=== PATIENT | male | born 1980 | race Caucasian/White ===

== ENCOUNTER 2016-07-14 11:05 | Inpatient (IN) | payer SELFPAY ==
[~2016-07-14] VITALS: Ht 182.9 cm; Wt 108.9 kg
[2016-07-14] VITALS (7 sets, daily range): BP systolic 123–128; BP diastolic 75–85; PULSE 78–107; RESP 16–20; O2SAT 95–99
[2016-07-14] MEDS ORDERED: Ondansetron 2 mg/mL 2 mL Inj IVPUSH ONE (11:35)
[2016-07-14] MEDS ORDERED: 0.9% Sodium Chloride 1,000 ML IV ONE (11:35)
[2016-07-14 11:42] LABS: BASOPHILS % (AUTO) 0.2 % (0-3); EOSINOPHILS % (AUTO) 1.1 % (0-5); MONOCYTES % (AUTO) 4.7 % (4-12); Mean Corpuscular Hemoglobin 31.3 pg (27.0-35.0); Mean Corpuscular Volume 89.9 fL (81-100); NEUTROPHILS % (AUTO) 85.4 % (40-74); Platelet Count 172 bil/L (150-400)
[2016-07-14] MEDS: HYDROmorphone 0.5 mg/0.5 mL iSecure Syringe IVPUSH PRN ×2 (11:47→12:16)
[2016-07-14 12:11] LABS: Magnesium 2.1 mg/dL (1.6-2.6)
--- NOTE | 2016-07-14 12:44 | ED.REPORT ---
HPI-Abd Pain M Under 40 Date of Service Jul 14, 2016 ED Provider: Abdirashid Rao MD A healthy 35 year old male presents to the ER accompanied by his with four days of abdominal pain that is like "pressure" in character. He also reports constipation, stating that he is only able to produce a small amount of liquid stool with associated rectal pain. Symptoms have been treated with laxatives, which seemed to elicit a "white, pus-like" rectal discharge, with a small amount of blood. Associated symptoms include difficulty urinating, diaphoresis, and nausea. Patient denies history of prostate disease, and history of STI's. Nursing Notes Stated Complaint: ABDOMINAL PAIN Chief Complaint: Male Abdominal Pain Nursing Notes Reviewed: Yes Allergies: Coded Allergies: No Known Allergies (Unverified , 07/14/16) General Time Seen by MD: 11:32 Chief Complaint Abdominal pain Hx Obtained From: Patient Arrived By: Walk-in Sudden in Onset?: No Onset Occurred: 4 days ago Symptom Duration: Since onset Location: : Abdomen lower: Diffuse Quality: Painful, Pressure Severity: Current: Moderate Severity: Maximum: Severe Associated with: Denies: Diarrhea Pertinent Negative: Pt denies other symptoms Pertinent Negative: Exacerbated by nothing, Relieved by nothing Past Medical History Past Medical History Healthy Smoking History Unknown if Ever Smoker Social History Other Social History: Good social support, Ambulatory Status Independent Review of Systems Constitutional: Denies: Chills, Fever Respiratory: Denies: Non-productive cough GI: Reports: Abdominal pain, Bloody/tarry stool, Constipation, Mucousy stool, Nausea, Denies: Diarrhea, Vomiting Male: Reports Urination decreased, Denies Penile discharge Complete sys rev & neg: except as marked. Skin: Reports Diaphoresis Physical Exam Initial Vital Signs Vital Signs (First) Date Time Temp Pulse Resp B/P Pulse Ox O2 Delivery O2 Flow Rate FiO2 07/14/16 11:17 37.4 107 16 125/85 Room Air Initial VS: Reviewed Head / Eyes: Atraumatic, Normocephalic Neck: Supple, Non-tender, Full range of motion Extremities: Vascular intact, Neuro intact, No swelling, No tenderness Skin: Warm, Dry, No cyanosis General/Constitutional: Awake, Alert, Well developed, Well nourished Appearance / Presentation: Positive: In pain, Uncomfortable Respiratory / Chest: Breath sounds NL, Breath sounds = bilat, No respiratory distress, No rales, No rhonchi, No wheezing, No stridor Cardiovascular: Heart rate NL, Regular rhythm, Heart sounds NL, Peripheral circulation NL Abdomen: Soft, No guarding, No rebound, No distention Tenderness/Guarding/Rebound: Positive: Tender LLQ..., Tender RLQ..., Tender diffuse Back: Inspection NL, Non-tender, No CVA tenderness Male Genitourinary: Inspection NL, Penis NL, No penile discharge, No meatal blood, Testes NL, Scrotal/perineal skin NL Diffuse inguinal tenderness. Rectum / Perineum: No gross blood, No fissures, No hemorrhoids, No lesions, Sphincter tone NL, Prostate NL Rectal for Blood: Positive: Blood - occult heme + (weakly) Scant hard, brown stool in rectal vault. No bogginess or tenderness of prostate. Interpretation & Diagnostics Lab Results Interpretation Result Diagram: 07/14/16 1130 07/14/16 1130 Test 07/14/16 11:30 07/14/16 12:50 White Blood Count 12.3th/mm3 (3.8-10.1) Red Blood Count 4.83mil/mm3 (4.40-5.80) Hemoglobin 15.1g/dL (13.8-17.2) Hematocrit 43.4% (41.0-50.0) Mean Corpuscular Volume 89.9fL (81-100) Mean Corpuscular Hemoglobin 31.3pg (27.0-35.0) Mean Corpuscular Hemoglobin Concent 34.8% (32.0-37.0) Red Cell Distribution Width 14.0% (12.3-15.4) Platelet Count 172bil/L (150-400) Neutrophils (%) (Auto) 85.4% (40-74) Lymphocytes (%) (Auto) 8.4% (14-46) Monocytes (%) (Auto) 4.7% (4-12) Eosinophils (%) (Auto) 1.1% (0-5) Basophils (%) (Auto) 0.2% (0-3) Sodium Level 135mEq/L (134-144) Potassium Level 4.5mEq/L (3.5-5.2) Chloride Level 98mEq/L (97-108) Carbon Dioxide Level 22mmol/L (18-29) Blood Urea Nitrogen 11mg/dL (6-20) Creatinine 0.87mg/dL (0.76-1.27) Estimat Glomerular Filtration Rate 106mL/min (>59) Glucose Level 115mg/dL (60-99) Calcium Level 9.4mg/dL (8.5-10.1) Magnesium Level 2.1mg/dL (1.6-2.6) Total Bilirubin 0.6mg/dL (0.0-1.2) Aspartate Amino Transf (AST/SGOT) 20U/L (0-50) Alanine Aminotransferase (ALT/SGPT) 18U/L (0-44) Alkaline Phosphatase 105U/L (25-150) Total Protein 8.0g/dL (6.4-8.4) Albumin 4.1g/dL (3.4-5.0) Lipase 16U/L (13-60) Hold Kaufman Top Tube Received (Received) Urine Color Yellow (YELLOW) Urine Appearance Hazy (CLEAR,HAZY) Urine pH 6.0 (5.0-8.0) Urine Specific Wayne 1.025 (1.003-1.035) Urine Protein Negativemg/dL (NEG,TRACE) Urine Glucose (UA) Negativemg/dL (NEGATIVE) Urine Ketones Negativemg/dL (NEGATIVE) Urine Occult Blood Trace (NEGATIVE) Urine Nitrite Negative (NEGATIVE) Urine Bilirubin Negative (NEGATIVE) Urine Urobilinogen Normalmg/dL (NORMAL) Urine Leukocyte Esterase Negative (NEGATIVE) Urine RBC 0-2/hpf (0-2) Urine WBC 0-5/hpf (0-5) Urine Epithelial Cells Occasional/hpf (NONE-MOD) Urine Crystals None seen (NONE SEEN) Urine Bacteria Few/hpf (NONE-FEW) Urine Hyaline Casts None/lpf (NONE) Urine Granular Casts None seen (NONE SEEN) Urine Waxy Casts None seen (NONE SEEN) Urine Red Blood Cell Casts None seen (NONE SEEN) Urine White Blood Cell Casts None seen (NONE SEEN) Urine Mucus Present (None Seen) Urine Trichomonas None seen (NONE SEEN) Urine Yeast None (NONE SEEN) Urinalysis Comment None Urine Culture Reflexed Not indicated CT Abd / Pelvis Interpretation IMPRESSION: 1. Inflammatory bowel disease involving the sigmoid colon, consistent with active diverticulitis showing extraluminal air and smaller small fluid collection that may represent abscess. Considerable fat stranding is evident and extends around the posterior urinary bladder which shows diffuse wall thickening, probably reactive but possibility of cystitis cannot be excluded. Differential for the abnormalities includes colitis and colon cancer. Note: Report was called to Dr. Kelvin Segovia in the ED at 1410 hrs. on 07/14/2016 Dictated by: Kb Marvin M.D. on 07/14/2016 at 13:57 Approved by: Kb Marvin M.D. on 07/14/2016 at 14:09 Study type: Abdominal CT IV contrast Interpretation / Wet Read by: Interpret - Radiologist, Discussed w radiologist Re-Eval/Medical Decision Med Decision/Clinical Course In summary, the patient is a 35-year-old male with no significant past medical history who presents to the emergency department with several days of diffuse lower abdominal pain, difficulty voiding urine and bloody/purulent rectal discharge. He has never had symptoms like this in the past. Upon arrival, the patient appears quite uncomfortable and he has diffuse lower abdominal tenderness but he is afebrile with stable vital signs. Rectal examination reveals scant guaiac positive brown stool without any hemorrhoids, anal fissures or prostatic tenderness/bogginess. Laboratory studies notable as below: CBC: Leukocytosis 12.3 Chemistry unremarkable UA positive for blood, negative for nitrites and negative for leukocytes. No indication of UTI. CT of the abdomen and pelvis was obtained as below: Inflammatory bowel disease involving the sigmoid colon, consistent with active diverticulitis showing extraluminal air and smaller small fluid collection that may represent abscess. Considerable fat stranding is evident and extends around the posterior urinary bladder which shows diffuse wall thickening, probably reactive but possibility of cystitis cannot be excluded. Differential for the abnormalities includes colitis and colon cancer. Given the above findings the patient was started on IV levofloxacin and Flagyl. Continue to treat him with IV fluids, Zofran for nausea and hydromorphone for pain though he has significant ongoing discomfort and we switched to IV fentanyl with better effect. Patient was discussed with general surgery who did not feel that immediate operative management was necessary. They requested he be admitted to the hospitalist service with ongoing IV antibiotics and IV fluids. They will formally consult as needed. The patient was discussed with the medical hospitalist and transferred in stable condition. Source of Hx: Old records Re-Evaluation/Progress : Time of Eval: 14:26 Re-Evaluation/Progress Note: Discussed lab and radiology results and need for admission. Updated patient on the prognosis and plan of care. Patient is amenable to the plan. All other questions addressed. Consultation #1: Call Returned at: 14:11 Note: Call from radiology to discuss CT results. Perforated diverticulitis. Consultation #2: Referral / Consult Name: Peter Ness MD Consulted With: Hospitalist Call Returned at: 14:21 Nutrition Assistant: Agrees with eval, Agrees with plan, Accepts admit Counseled Regarding: Diagnosis, Lab results, Need for admission Patient Discharge & Departure Primary Impression: Diverticulitis Diverticulitis site: large intestine Diverticulitis bleeding: with bleeding Diverticulitis complication: with perforation Qualified Code: K57.21 - Diverticulitis of large intestine with perforation and abscess with bleeding Additional Impressions: Colon perforation Generalized abdominal pain Rectal bleed Disposition: ADMITTED TO HOSPITAL Discharge Condition All VS Reviewed: Yes Condition: Stable Referrals: Chan Aparicio MD (PCP) Armida Attestation Portions of this note were transcribed by Edenilson Olsen. I, Dr. Rao, personally performed the history, physical exam and medical decision-making; I reviewed and confirmed the accuracy of the information in the transcribed note. Signed by: Armida Villalta, 07/14/2016 and 14:30 copies to: Chan Aparicio MD, Beck O MD Jul 14, 2016 12:44 EDENILSON OLSEN Jul 14, 2016 12:57
[2016-07-14 13:09] LABS: COLOR,URINE YELLOW (YELLOW)
[2016-07-14 13:10] LABS: APPEARANCE,URINE HAZY (CLEAR,HAZY); OCCULT BLOOD,URINE TRACE (NEGATIVE); UROBILINOGEN,URINE NORMAL (NORMAL)
[2016-07-14] MEDS: HYDROmorphone 1 mg/mL Inj IVPUSH PRN ×4 (13:12→23:06)
[2016-07-14] MEDS ORDERED: levoFLOXacin Inj 750 MG in IV Premix 1 EACH IV ONE (14:10)
[2016-07-14] MEDS ORDERED: metroNIDAZOLE Inj 500 MG in IV Premix 1 EACH IV ONE (14:10)
--- NOTE | 2016-07-14 14:11 | DRSVH ---
PROCEDURE: CT ABDOMEN AND PELVIS WITH CONTRAST ([id number]) INDICATIONS: low abd pain, rectal pain, difficult to void TECHNIQUE: After the administration of intravenous contrast, 5 mm thick sections acquired from the diaphragm to the symphysis. 5 mm coronal and sagittal reformats were acquired. For radiation dose reduction, the following was used: automated exposure control, adjustment of mA and/or kV according to patient siz e. COMPARISON: None. FINDINGS: Image quality: Excellent. ABDOMEN: Lung bases: Lung bases are clear. Heart size is normal. Solid organs: Liver and spleen are normal in size and enhancement. Gallbladder appears normal. Girma iary system is non dilated. Pancreas enhances normally. No adrenal nodules. Kidneys demonstrate no rmal size and enhancement, without hydronephrosis. Peritoneum and bowel: Small bowel loops demonstrate normal wall thickness and caliber. Normal appendi x. There is a long segment of diffuse wall thickening in the mid sigmoid colon, associated with extra luminal air bubbles and prominent fat stranding. There is a small fluid collection posterior to the s igmoid measuring 1.0 x 2.6 x 3.2 cm in size, compatible with small abscess. There are diverticula in the region and diagnosis is most likely perforated diverticulitis. No free intraperitoneal fluid or a ir.. Nodes and vessels: No retroperitoneal or mesenteric adenopathy by size criteria. Aorta and inferior vena cava are normal in size. Miscellaneous: Small fat filled umbilical hernia. PELVIS: Genitourinary: Bladder wall thickness is mildly and uniformly thickened. Prostate and seminal vesicl es appear normal. Miscellaneous: No inguinal hernias or adenopathy. Bones: No suspicious bony lesions. No vertebral body compression fractures. IMPRESSION: 1. Inflammatory bowel disease involving the sigmoid colon, consistent with active diverticulitis show ing extraluminal air and smaller small fluid collection that may represent abscess. Considerable fat stranding is evident and extends around the posterior urinary bladder which shows diffuse wall thicke stuart, probably reactive but possibility of cystitis cannot be excluded. Differential for the abnormal ities includes colitis and colon cancer. Note: Report was called to Dr. Kelvin Segovia in the ED at 1410 hrs. on 07/14/2016 Dictated by: Kb Marvin M.D. on 07/14/2016 at 13:57 Approved by: Kb Marvin M.D. on 07/14/2016 at 14:09
[2016-07-14] MEDS ORDERED: fentaNYL-PF 50 mCg/mL 2 mL Inj IVPUSH ONE (14:25)
[2016-07-14] MEDS ORDERED: Alum-Mag Hydrox-Simeth 30 mL Suspension PO PRN (15:30)
[2016-07-14] MEDS ORDERED: Polyethylene Glycol (PEG) 17 Gm Powder PO PRN (15:35)
[2016-07-14] MEDS: 0.9% Sodium Chloride 1,000 ML IV SCH ×2 (16:09→21:57)
[2016-07-14] MEDS ORDERED: CHOL100043 PO (17:03)
[2016-07-14] MEDS ORDERED: CALC600T12 PO (17:03)
[2016-07-14] MEDS ORDERED: VITA15DR3 PO (17:03)
[2016-07-14] MEDS ORDERED: MULT-1018 PO (17:03)
[2016-07-14] MEDS ORDERED: OMEG300C3 PO (17:03)
--- NOTE | 2016-07-14 17:24 | CONS ---
[address] [address] CONSULTATION REPORT PATIENT: WILLIAM BUCKLEY : 1980 MR#: [id number] ADMIT: 07/14/2016 JOB ID: [id number] DATE OF SERVICE: 07/14/2016 CHIEF COMPLAINT: Diverticulitis. HISTORY OF PRESENT ILLNESS: The patient is a 35-year-old male with a first episode of diverticulitis. I was consulted by the ED physician for evaluation. According to the patient his pain started Wednesday, which is three days ago. The pain is described to be in his lower abdomen on both sides, and perhaps slightly more on the left side. He has been having issues with constipation and feels like he is blocked. Yesterday he did pass some mucus or snot-like fluid with some blood out of his rectum. He does report having nausea, but no vomiting. He denies any fevers or chills. He has also been having trouble with urination in terms of difficult to pee and then feeling pressure and discomfort when he tries to pee. The patient has never had a colonoscopy before. There is a family history of diverticulitis in his parents. PAST MEDICAL HISTORY: None. MEDICATIONS: None. ALLERGIES: None. SOCIAL HISTORY: The patient lives in [place] with his . He works for the [employer]. He has a total of three kids. He does smoke cigarettes 4-5 cigs per day. FAMILY HISTORY: Positive for diverticulitis in his parents. REVIEW OF SYSTEMS: Positive for the lower abdominal pain and nausea, and constipation and dysuria. All other systems reviewed were negative. PHYSICAL EXAMINATION: The patient is currently in the hospital bed in no acute distress. His BMI is 33.3. Temperature is 37.1, blood pressure 128/75, pulse is 85, respirations 16. Head is normocephalic, atraumatic. There is no scleral icterus. Neck is supple. Heart is regular rate. Lungs are clear. Abdomen is mildly obese. It is exquisitely tender in the left lower quadrant, and moderately tender in the suprapubic location, and mild tenderness on the right lower quadrant. There are no peritoneal signs. Extremities show no clubbing and no cyanosis. Neurologically, the patient is awake and alert and follows commands. LABORATORY EXAMINATION: Shows a white blood count of 12.3, hematocrit 43.4, platelet count is 172. Sodium is 135, potassium 4.5, creatinine 0.87. Total bilirubin 0.6. Lipase of 16. The CT scan report from today shows sigmoid diverticulitis with extraluminal pockets of air and small fluid collection posterior to the bladder. There is no free pneumoperitoneum. ASSESSMENT: This is a 35-year-old male with a first episode of acute diverticulitis with microperforation and possibly a small abscess. The patient should be n.p.o. on IV fluids and on IV antibiotics. We will ask if the patient wants to participate in the [facility] DEBUT study regarding diverticulitis. We will follow the patient along with you. I would anticipate that if the patient continues to clinically improve without surgical intervention, we should consider repeating a CAT scan prior to discharge to make sure there is resolution of the small diverticular abscess. We should repeat his white blood count tomorrow.
--- NOTE | 2016-07-14 17:37 | PCM.HPMED ---
Subjective Date of Service Jul 14, 2016 Primary Provider: Admitting Physician: Peter Ness MD Primary Care Physician: Chan Aparicio MD Attending Physician: Peter Ness MD Chief Complaint: abdominal pain History of Present Illness: Patient is a 35 year old male with no past medical history that is presenting with a four day history of lower abominal pain. Patient had been in his regular state of health, when he started to develop abdominal pain on 07/11/16. Patient states that it started as a band like sharp pain that would travel all along the bottom of his abdomen. Patient states that the pain would appear spontaneously and would resolve without intervention. Patient states that the pain would appear every 20 minutes or so and would be at a 7/10 in its worst presentation. Patient continued on his normal routine, and would eat and stool normally but would be bothered by the pain every 20-30 minutes. Last night the patient noticed that the pain was more severe and would present more frequently. Patient then noticed that his stool was partly covered in what looked like thick yellow mucous. Patient became worried that something more severe was at hand so he came to the ER. Review of Systems: Review of Systems Constitutional: Denies: Chills, Fever Respiratory: Denies: Non-productive cough GI: Reports: Abdominal pain, Bloody/tarry stool, Constipation, Mucousy stool, Nausea, Denies: Diarrhea, Vomiting Male: Reports Urination decreased, Denies Penile discharge Complete sys rev & neg: except as marked. Skin: Reports Diaphoresis Allergies Coded Allergies: No Known Allergies (Unverified , 07/14/16) Home Medications none PMH spinal microfracture as a child Surgical History none Family History non-contributory Social History Hx Alcohol Use: Yes Alcoholic Drinks Per Day: 1-2 Hx Substance Use: No Smoking Status: Unknown if Ever Smoker Exam Vital Signs Vital Sign - Last Date Time Temp Pulse Resp B/P Pulse Ox O2 Delivery O2 Flow Rate FiO2 07/14/16 16:57 85 07/14/16 16:42 37.0 20 124/77 97 Room Air Exam General/Constitutional: Awake, Alert, Well developed, Well nourished Appearance / Presentation: Positive: In pain, Uncomfortable Head / Eyes: Atraumatic, Normocephalic Neck: Supple, Non-tender, Full range of motion Respiratory / Chest: Breath sounds NL, Breath sounds = bilat, No respiratory distress, No rales, No rhonchi, No wheezing, No stridor Cardiovascular: Heart rate NL, Regular rhythm, Heart sounds NL, Peripheral circulation NL Abdomen: Soft, No guarding, No rebound, No distention Tenderness/Guarding/Rebound: Positive: Tender LLQ..., Tender RLQ..., Tender diffuse Back: Inspection NL, Non-tender, No CVA tenderness Extremities: Vascular intact, Neuro intact, No swelling, No tenderness Skin: Warm, Dry, No cyanosis Rectal for Blood: Positive: Blood - occult heme + (weakly) Lab and Diagnostics Result Diagram: 07/14/16 1130 07/14/16 1130 X-Rays, CTs and MRIs CT Abd / Pelvis Interpretation IMPRESSION: 1. Inflammatory bowel disease involving the sigmoid colon, consistent with active diverticulitis showing extraluminal air and smaller small fluid collection that may represent abscess. Considerable fat stranding is evident and extends around the posterior urinary bladder which shows diffuse wall thickening, probably reactive but possibility of cystitis cannot be excluded. Differential for the abnormalities includes colitis and colon cancer. Note: Report was called to Dr. Kelvin Segovia in the ED at 1410 hrs. on 07/14/2016 Assessment & Plan Patient is a 35 year old male with evidence of perforated diverticulitis on CT scan of the abdomen. Patient has been having abdominal pain for the past 4 days. Patient is currently stable and will be admitted Perforated Divericulitis with abscess - Patient has been having 4 days abdominal pain secondary to perforated diverticulitis - Evidence of abscess seen in CT abdomen with questionable tracking - will treat with IV metronidazole and levofloxacin - eduardo provide liberal iv fluids while npo - surgery consulted, currently no surgical intervention advised - will recommend to call IR in the am to see if abscess is drainable DVT ppx via lovenox GI ppx via Peter Gaines MD Jul 14, 2016 17:37
--- NOTE | 2016-07-14 19:21 | NUR ---
Admit to [facility] Pt admitted from ED for perforated diverticulitis. Pt states pain at 8/10 with little to no relief from pain medications. Report received from Kyle MAURICIO. Pt admit interventions and med rec complete.
[2016-07-14] MEDS: Famotidine Inj 20 MG in IV Premix 1 EACH IV SCH (21:52)
[2016-07-14] MEDS: Ondansetron 2 mg/mL 2 mL Inj IVPUSH PRN (21:54)
[2016-07-14] MEDS ORDERED: metroNIDAZOLE Inj 500 MG in IV Premix 1 EACH IV SCH (22:30)
[2016-07-15] VITALS: BP 120/85; PULSE 85; RESP 18; O2SAT 96
[2016-07-15] MEDS: HYDROmorphone 1 mg/mL Inj IVPUSH PRN ×6 (03:05→23:51)
[2016-07-15 04:26] VITALS: BP 114/72; PULSE 75; RESP 18; O2SAT 95
--- NOTE | 2016-07-15 04:38 | NUR ---
Pain / Nausea Pt reports consistent 8/10 pain throughout shift to abdomen, relief with IVP Dilaudid; able to rest intermittently. Acute nausea at beginning of shift, no emesis produced, 8mg Zofran administered with relief on reassessment. VSS, tele SR 70s.
[2016-07-15 05:35] LABS: BASOPHILS % (AUTO) 0.1 % (0-3); EOSINOPHILS % (AUTO) 1.7 % (0-5); MONOCYTES % (AUTO) 5.9 % (4-12); Mean Corpuscular Hemoglobin 30.4 pg (27.0-35.0); Mean Corpuscular Volume 90.6 fL (81-100); NEUTROPHILS % (AUTO) 79.3 % (40-74); Platelet Count 157 bil/L (150-400)
[2016-07-15] MEDS: metroNIDAZOLE Inj 500 MG in IV Premix 1 EACH IV SCH ×3 (05:47→19:36)
[2016-07-15] MEDS: 0.9% Sodium Chloride 1,000 ML IV SCH ×3 (05:47→18:13)
[2016-07-15 05:59] LABS: Magnesium 1.9 mg/dL (1.6-2.6)
--- NOTE | 2016-07-15 08:06 | PCM.PNSURG ---
Subjective Visit Information: Reason for Visit Perforated Diverticulitis Surgery/Surgery Date Post-Op Day # Date of Admission: Jul 14, 2016 at 14:32 Hospital Day # Subjective: lower abd pain still about the same, not worse, urination has become better, passed flatus, no BM Objective Objective Arousable in bed Abd: nondistended, still moderately tender at suprapubic location, no peritoneal signs Vital Sign- Last 8 Hours Date Time Temp Pulse Resp B/P Pulse Ox O2 Delivery O2 Flow Rate FiO2 07/15/16 04:26 36.9 75 18 114/72 95 Room Air Intake and Output- Last 8 Hour 07/15/16 Cumulative From/Thru 07:00 07/14/16 11:17 - 07/15/16 05:52 Intake Total 1966 ml 1966 ml Output Total 550 ml 550 ml Balance 1416 ml 1416 ml Intake Oral 0 ml 0 ml IV Total 1966 ml 1966 ml Output Urine Total 550 ml 550 ml # Voids 2 2 Result Diagram: 07/15/16 0502 07/15/16 0502 Assessment & Plan Impression Diverticulitis with possible small abscess Normal WBC today Problems: Plan Continue with ice chips and IV abx Consider re-CT in a few days prior to discharge to re-evaluate possible abscess Need outpt colonoscopy Emil Rollins MD Jul 15, 2016 08:06
[2016-07-15 08:12] VITALS: BP 134/83; PULSE 73; RESP 20; O2SAT 95
[2016-07-15] MEDS: Famotidine Inj 20 MG in IV Premix 1 EACH IV SCH ×2 (08:18→19:35)
[2016-07-15] MEDS: levoFLOXacin Inj 750 MG in IV Premix 1 EACH IV SCH (08:18)
[2016-07-15] MEDS: Ondansetron 2 mg/mL 2 mL Inj IVPUSH PRN (08:41)
--- NOTE | 2016-07-15 09:42 | NUR ---
Social Work: Screening Data: Pt is a 35 y/o male admitted for perforated diverticulitis. Pt's PCP is Dr Aparicio, pt is self pay insurance. CLINICAL COORDINATOR met with pt, provided [facility] application for pt. Pt states he has a ride home with family when ready for d/c. No further d/c planning needs anticipated at this time. CLINICAL COORDINATOR will continue to follow if needs arise. Assessment: Pt who is independent at baseline. Plan: Pt will d/c home via POV with family when medically stable. [employer] application for pt. No further d/c planning needs anticipated at this time. CLINICAL COORDINATOR will continue to follow if needs arise. STEPHY Saez
--- NOTE | 2016-07-15 14:43 | NUR ---
Activity/pain Pt is encouraged to get up and walk to help with pain and move his bowels. Pt has walked around unit several times with his . Gait is strong. Pt is also requesting a shower, orders ok to dc tele for showers. Pt states that pain is decreasing from sharp pressure at 8/10, to achy cramping at 6/10. Pt is stating relief to 4-5/10 with 1mg IV push Dilaudid q 3 hrs.
[2016-07-15 16:28] VITALS: PULSE 96
[2016-07-15 16:35] VITALS: BP 133/91; PULSE 75; RESP 16; O2SAT 95
--- NOTE | 2016-07-15 17:33 | PCM.PNMED ---
Subjective Date of Service Jul 15, 2016 Subjective Patient is a 35 year old male with no past medical history who presented to ED with a four day history of lower abdominal pain. Patient admitted for treatment of diverticulitis with small abscess. Hospital Day 1. Overnight: no events reported Today: patient stated that he is in a great deal of pain and the medications given thus far have not controlled his pain. Pain is located to lower right and left quadrants, described a sharp, made marginally better with medication, made worse with pressure over affected areas. Patient stated that he is able to get up and move to the bathroom, urinate with out difficulty, is passing gas but has not had a bowel movement. Patient denies fever, chills, nausea, vomiting, passing blood or purulent material from his rectum. ROS negative except for mentioned above. Exam Vital Signs Vital Sign - Last Date Time Temp Pulse Resp B/P Pulse Ox O2 Delivery O2 Flow Rate FiO2 07/15/16 04:26 36.9 75 18 114/72 95 Room Air Intake and Output 07/14/16 07/14/16 07/15/16 Cumulative From/Thru 15:00 23:00 07:00 07/14/16 11:17 - 07/15/16 05:52 Intake Total 1966 ml 1966 ml Output Total 550 ml 550 ml Balance 1416 ml 1416 ml Intake Oral 0 ml 0 ml IV Total 1966 ml 1966 ml Output Urine Total 550 ml 550 ml # Voids 2 2 Exam General: Awake, Alert and oriented to person, place and time, well developed, well nourished HEENT: Atraumatic, Normocephalic, anicteric sclera, no lymph node palpable Neck: Supple, non-tender, full range of motion, no JVD Respiratory: Breath sounds clear to auscultation bilaterally, no signs of respiratory distress. No rales, rhonchi, wheezing heard Cardiovascular: regular rate and rhythm. No murmur, gallops, or rubs heard/ Abdomen: Soft, mildly distended, tender to palpation of left lower quadrant with mild guarding, tender to palpation of right lower quadrant. Back: Inspection , Non-tender, No CVA tenderness Extremities: multiple tattoos present on arms bilaterally, peripheral pulses intact in all four extremities, sensation intact. No erythema, swelling, or tenderness, skin is warm and dry Neuro: Alert and oriented, Grossly neurologically intact. Lab and Diagnostics Result Diagram: 07/15/16 0502 07/15/16 0502 X-Rays, CTs and MRIs CT Abd / Pelvis Interpretation IMPRESSION: 1. Inflammatory bowel disease involving the sigmoid colon, consistent with active diverticulitis showing extraluminal air and smaller small fluid collection that may represent abscess. Considerable fat stranding is evident and extends around the posterior urinary bladder which shows diffuse wall thickening, probably reactive but possibility of cystitis cannot be excluded. Differential for the abnormalities includes colitis and colon cancer. Note: Report was called to Dr. Kelvin Segovia in the ED at 1410 hrs. on 07/14/2016 Assessment & Plan Patient is a 35 year old male with no past medical history who presented to ED with a four day history of lower abdominal pain. Patient admitted for treatment of diverticulitis with small abscess. Hospital Day 1. 1.Perforated Diverticulitis with abscess, present on admission, acute - Patient has been having 4 days abdominal pain secondary to perforated diverticulitis, reports family history of diverticulitis - Evidence of abscess seen in CT abdomen with possible tracking - Repeat CT abdomen tomorrow/prior to discharge - Continue with IV metronidazole and levofloxacin - Continue IVF NS @ 150 mls/hr Q6 - surgery consulted, currently no surgical intervention advised at this time - Continue IV hydromorphone 1 mg Q3 for pain control - Continue bowel rest only ice chips - Patient encouraged to mobilize - Consider IR consult to see if abscess is drainable, however patient is not amenable at this time due to self pay status and elects to treat medically - Recommend outpatient colonoscopy once symptoms have resolved. DVT ppx via lovenox GI ppx via pepcid Disposition: discharge to home pending improvement of diverticulitis and no new indications for surgery or drainage. VTE Mechanical Devices: Intermittant Pneumatic CD Attending Statement patient seen and examined with Dr Mccormack .I agree with the history,exam, impression and plan as outlined above KWABENA MCCORMACK DO Jul 15, 2016 06:57 Ronald Colunga MD Jul 15, 2016 20:15
[2016-07-15 19:32] VITALS: BP 133/87; PULSE 74; RESP 20; O2SAT 98
[2016-07-16 00:11] VITALS: BP 128/76; PULSE 78; RESP 20; O2SAT 95
[2016-07-16] MEDS: 0.9% Sodium Chloride 1,000 ML IV SCH ×2 (00:20→07:49)
--- NOTE | 2016-07-16 01:06 | NUR ---
PAIN/NPO/TRANSFER Pt denied pain @ beginning of shift, but did state repeatedly that he was starving and wanted to eat. Pt NPO status, ice chips ok. 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 Pt did request IV diladid @ 2351 for the abd pain to help him sleep. Pt vitals stable, SR 70's, RA. Pt was transferred to 1003, report given to Link Myles.
[2016-07-16 01:19] VITALS: BP 146/77; PULSE 77; RESP 20; O2SAT 95
[2016-07-16] MEDS: HYDROmorphone 1 mg/mL Inj IVPUSH PRN (02:54)
[2016-07-16 05:24] VITALS: BP 107/67; PULSE 67; RESP 18; O2SAT 95
--- NOTE | 2016-07-16 06:03 | NUR ---
Pain c/o LLQ pain x1 this shift. Prn Dilaudid 1mg IVP administered and effective. No further complaints.
[2016-07-16 06:19] LABS: BASOPHILS % (AUTO) 0.3 % (0-3); EOSINOPHILS % (AUTO) 2.8 % (0-5); MONOCYTES % (AUTO) 6.3 % (4-12); Mean Corpuscular Hemoglobin 30.7 pg (27.0-35.0); Mean Corpuscular Volume 89.7 fL (81-100); NEUTROPHILS % (AUTO) 74.1 % (40-74); Platelet Count 156 bil/L (150-400)
[2016-07-16] MEDS: metroNIDAZOLE Inj 500 MG in IV Premix 1 EACH IV SCH (06:23)
[2016-07-16 06:40] VITALS: PULSE 77
[2016-07-16] MEDS: Famotidine Inj 20 MG in IV Premix 1 EACH IV SCH (07:49)
[2016-07-16] MEDS: levoFLOXacin Inj 750 MG in IV Premix 1 EACH IV SCH (07:49)
[2016-07-16 08:00] VITALS: PULSE 77
--- NOTE | 2016-07-16 08:54 | PCM.PNSURG ---
Subjective Date of Service: Jul 16, 2016 Visit Information: Reason for Visit Perforated Diverticulitis Surgery/Surgery Date Post-Op Day # Date of Admission: Jul 14, 2016 at 14:32 Hospital Day #3 Subjective: Formed bowel movement 2 overnight. No nausea or vomiting. Abdominal pain greatly improved since admission. Pain well controlled with intermittent IV analgesic. Ambulatory in the room. Requesting hospital discharge. Postop General: Other (as above) Gastrointestinal: No N/V, Passing Stool Pain Management: IV Push Postop Activity: Ambulating in Room Only Objective Vital Sign- Last 8 Hours Date Time Temp Pulse Resp B/P Pulse Ox O2 Delivery O2 Flow Rate FiO2 07/16/16 06:40 77 07/16/16 05:24 36.8 67 18 107/67 95 Room Air 07/16/16 01:19 36.9 77 20 146/77 95 Room Air Intake and Output- Last 8 Hour 07/16/16 Cumulative From/Thru 07:00 07/14/16 11:17 - 07/16/16 06:38 Intake Total 0 ml 3614 ml Output Total 550 ml Balance 0 ml 3064 ml Intake Oral 0 ml 120 ml IV Total 0 ml 3494 ml Output Urine Total 550 ml # Voids 3 9 # Bowel Movements 2 3 General: Alert, Cooperative, No Acute Distress Lungs: Clear to Auscultation Heart: Regular Rate/Rhythm Abdomen: Soft, Non-tender, Non-distended, No masses Extremities: Thigh&Calf Soft/Nontender Neuro: Normal Speech Catheters: None Result Diagram: 07/16/16 0518 07/16/16 0518 Assessment & Plan Impression Diverticulitis with microperforation and small abscess by CT scan. HD #3, improving on IV antibiotics. Problems: Plan 1. Initiate full liquid diet, advance as tolerated. 2. Transition to oral antibiotics. 3. Transition to oral analgesic. 4. CT of the abdomen tomorrow to follow abscess prior to discharge. 5. Screening colonoscopy following discharge. Pain Management: Intermittent IV analgesic Resuscitation Status: CPR: Attempt Resuscitation Calderon James PA-C Jul 16, 2016 08:53
--- NOTE | 2016-07-16 11:33 | NUR ---
Social Work Screen Note: SW met with patient at bedside to discuss discharge plan. Patient is a 35 year old male admitted on 07/14/16 for perforated diverticulitis. Patient resides in [place] with Suzy, . Patient pharmacy of choice as [facility]. Patient has no HHC, SNF, DME, or AD history. Patient declined completion of AD form. Patient self pay at this time. RCA screened patient and patient over income to qualify for Medicaid. Patient states being independent with needs and has no identified discharge needs at this time. SW to follow. PLAN: HOme with via POV, pending clinical course. Carolina KEYES
--- NOTE | 2016-07-16 11:42 | PCM.DIMED ---
Discharge Instructions Date of Service Jul 16, 2016 Dates of Hospitalization Jul 14, 2016 at 14:32 Discharge Diagnosis Discharge Diagnosis Diverticulitis with perforation Diet Other (Diverticulitis diet) Activity No restrictions (May resume usual activities gradually as tolerated) Call your provider Fever or Chills, Shortness of breath, Bleeding, Chest pain, Vomitting, Excessive diarrhea, Weakness (unilateral), Other (Increased abdominal pain) Patient Instructions Follow-up Provider: Chan Aparicio MD Follow-up with PCP in: 1 week (Patient will need referral to GI for colonoscopy and a repeat CT of the Abdomen and Pelvis) Beni Torres MD Jul 16, 2016 11:42
[2016-07-16] MEDS ORDERED: LEVO750T9 PO (11:48)
[2016-07-16] MEDS ORDERED: Lactobacillus Acidophilus PO (11:48)
[2016-07-16] MEDS ORDERED: METR500T PO (11:48)
--- NOTE | 2016-07-16 12:53 | NUR ---
Discharge D/C to home with significant other. D/C instructions, f/u info, care notes and 1 RX discussed and provided in packet. 2 additional RXs e-sent to pharmacy. Provided work note and list of meds given in hospital. No further questions from pt or significant other at this time and pt ambulated with all belongings to private vehicle.
--- NOTE | 2016-07-17 02:10 | PCM.DC.MED ---
Discharge Summary Date of Service Jul 16, 2016 Dates of Hospitalization Date of Hospital Admission Jul 14, 2016 at 14:32 Date of Discharge: Jul 16, 2016 Providers: Admitting Physician: Peter Ness MD Primary Care Physician: Chan Aparicio MD Attending Physician: Peter Ness MD Diagnosis at Time of Discharge Diagnosis at Time of Discharge Diverticulitis with perforation Consultations General surgery Procedures XRay, CTs & MRIs CT Abd / Pelvis Interpretation IMPRESSION: 1. Inflammatory bowel disease involving the sigmoid colon, consistent with active diverticulitis showing extraluminal air and smaller small fluid collection that may represent abscess. Considerable fat stranding is evident and extends around the posterior urinary bladder which shows diffuse wall thickening, probably reactive but possibility of cystitis cannot be excluded. Differential for the abnormalities includes colitis and colon cancer. Note: Report was called to Dr. Kelvin Segovia in the ED at 1410 hrs. on 07/14/2016 Brief History Patient is a 35 year old male with no past medical history that is presenting with a four day history of lower abominal pain. Patient had been in his regular state of health, when he started to develop abdominal pain on 07/11/16. Patient states that it started as a band like sharp pain that would travel all along the bottom of his abdomen. Patient states that the pain would appear spontaneously and would resolve without intervention. Patient states that the pain would appear every 20 minutes or so and would be at a 7/10 in its worst presentation. Patient continued on his normal routine, and would eat and stool normally but would be bothered by the pain every 20-30 minutes. Last night the patient noticed that the pain was more severe and would present more frequently. Patient then noticed that his stool was partly covered in what looked like thick yellow mucous. Patient became worried that something more severe was at hand so he came to the ER. Hospital Course Patient is a 35 year old male with no past medical history who presented to ED with a four day history of lower abdominal pain. Patient admitted for treatment of diverticulitis with small abscess. 1.Perforated Diverticulitis with abscess, present on admission, acute - Patient has been having 4 days abdominal pain secondary to perforated diverticulitis, reports family history of diverticulitis - Evidence of abscess seen in CT abdomen with possible tracking - Repeat CT abdomen tomorrow/prior to discharge. Patient is refusing this CAT scan as he has to pay privately for his hospitalization and tests he is refusing the CAT scan. His supports him in this refusal - Continue with metronidazole and levofloxacin. These have been changed to by mouth by surgery. - Surgery consulted, currently no surgical intervention advised at this time - Continue IV hydromorphone 1 mg Q3 for pain control - Continue bowel rest only ice chips - Patient encouraged to mobilize - Consider IR consult to see if abscess is drainable, however patient is not amenable at this time due to self pay status and elects to treat medically - Recommend outpatient colonoscopy once symptoms have resolved. DVT ppx via lovenox GI ppx via pepcid Disposition: Patient would like to treat his condition medically and does not want another CAT scan and would like to go home today. Therefore he will be discharged home today. Exam Vital Signs (Last) Date Time Temp Pulse Resp B/P Pulse Ox O2 Delivery O2 Flow Rate FiO2 07/16/16 08:00 77 07/16/16 05:24 36.8 18 107/67 95 Room Air Exam General: Patient is in no apparent distress. He is quite comfortable. HEENT: Head is atraumatic and normocephalic. Eyes: Pupils are equally round and reactive to light and accommodation. Extraocular muscles are intact. Sclera are white, anicteric. Subconjunctival mucosa is pink. Ears and nose are unremarkable. Oropharynx: There is no mucosal lesions, there is no thrush, there is no pharyngitis. Neck: Is supple, there are no nodes, or masses or tenderness. Chest: Is clear to auscultation and percussion. There are no rales, rhonchi, wheezes or rubs. Heart: Rate, rhythm is regular. There is no murmur, rub or gallop. Abdomen: Good bowel sounds are present. Abdomen is soft, no significant tenderness appreciated. There is no rebound tenderness, no guarding, no organomegaly or masses were appreciated. Extremities: Are symmetrical and well perfused. There is no edema, there is no cellulitis, no rash. Neurologic: There are no focal neurological deficits. Cranial nerves II through XII are intact. There are no sensory or motor deficits. Psychiatric: Patients mood is calm and shows no sign of agitation. Genital: Deferred Rectal: Deferred Test 07/14/16 11:30 07/14/16 12:50 07/15/16 05:02 07/16/16 05:18 Lipase 16U/L (13-60) Hold Kaufman Top Tube Received (Received) Urine Color Yellow (YELLOW) Urine Appearance Hazy (CLEAR,HAZY) Urine pH 6.0 (5.0-8.0) Urine Specific [place] 1.025 (1.003-1.035) Urine Protein Negativemg/dL (NEG,TRACE) Urine Glucose (UA) Negativemg/dL (NEGATIVE) Urine Ketones Negativemg/dL (NEGATIVE) Urine Occult Blood Trace (NEGATIVE) Urine Nitrite Negative (NEGATIVE) Urine Bilirubin Negative (NEGATIVE) Urine Urobilinogen Normalmg/dL (NORMAL) Urine Leukocyte Esterase Negative (NEGATIVE) Urine RBC 0-2/hpf (0-2) Urine WBC 0-5/hpf (0-5) Urine Epithelial Cells Occasional/hpf (NONE-MOD) Urine Crystals None seen (NONE SEEN) Urine Bacteria Few/hpf (NONE-FEW) Urine Hyaline Casts None/lpf (NONE) Urine Granular Casts None seen (NONE SEEN) Urine Waxy Casts None seen (NONE SEEN) Urine Red Blood Cell Casts None seen (NONE SEEN) Urine White Blood Cell Casts None seen (NONE SEEN) Urine Mucus Present (None Seen) Urine Trichomonas None seen (NONE SEEN) Urine Yeast None (NONE SEEN) Urinalysis Comment None Urine Culture Reflexed Not indicated Magnesium Level 1.9mg/dL (1.6-2.6) Total Bilirubin 0.4mg/dL (0.0-1.2) Aspartate Amino Transf (AST/SGOT) 14U/L (0-50) Alanine Aminotransferase (ALT/SGPT) 12U/L (0-44) Alkaline Phosphatase 89U/L (25-150) Total Protein 6.0g/dL (6.4-8.4) Albumin 3.3g/dL (3.4-5.0) White Blood Count 6.8th/mm3 (3.8-10.1) Red Blood Count 4.17mil/mm3 (4.40-5.80) Hemoglobin 12.8g/dL (13.8-17.2) Hematocrit 37.4% (41.0-50.0) Mean Corpuscular Volume 89.7fL (81-100) Mean Corpuscular Hemoglobin 30.7pg (27.0-35.0) Mean Corpuscular Hemoglobin Concent 34.2% (32.0-37.0) Red Cell Distribution Width 13.2% (12.3-15.4) Platelet Count 156bil/L (150-400) Neutrophils (%) (Auto) 74.1% (40-74) Lymphocytes (%) (Auto) 16.2% (14-46) Monocytes (%) (Auto) 6.3% (4-12) Eosinophils (%) (Auto) 2.8% (0-5) Basophils (%) (Auto) 0.3% (0-3) Sodium Level 138mEq/L (134-144) Potassium Level 4.2mEq/L (3.5-5.2) Chloride Level 102mEq/L (97-108) Carbon Dioxide Level 20mmol/L (18-29) Blood Urea Nitrogen 10mg/dL (6-20) Creatinine 0.73mg/dL (0.76-1.27) Estimat Glomerular Filtration Rate 129mL/min (>59) Glucose Level 85mg/dL (60-99) Calcium Level 8.3mg/dL (8.5-10.1) Procalcitonin 0.11ng/mL (0.00-0.08) Discharge Medications Discharge Medications ([Lactobacillus Acidophilus]) 1 TABLET TABLET 2 TABLET PO PCHS Prescribed by: NITA TORRES MD Cholecalciferol (Vitamin D3) (Vitamin D) 1,000 Unit Tablet 1,000 UNIT PO DAILY ( Reported) Levofloxacin (Levaquin) 750 Mg Tablet 750 MG PO DAILYAC Prescribed by: NITA TORRES MD Metronidazole (Flagyl) 500 Mg Tablet 500 MG PO Q8 Prescribed by: NITA TORRES MD Multivitamin (Multi Vitamin Daily) 1 Each Tablet 1 EACH PO DAILY (Reported) Miscellaneous Medications Calcium Carbonate (Calcium) 600 Mg Tablet 600 MG PO (Reported) Aragon-3 Fatty Acids (Fish Oil) 300 Mg Capsule 300 MG PO (Reported) Vitamin E (Dl,Tocopheryl Acet) (Vitamin E) 15 Unit/0.3 Ml Drops 15 UNIT PO ( Reported) Followup Plan Disposition: Patient is being discharged home with his . Discharge Diet: Other (Diverticulitis diet) Discharge Activity: No restrictions (May resume usual activities gradually as tolerated) Follow-up Provider: Chan Aparicio MD Follow-up with PCP in: 1 week (Patient will need referral to GI for colonoscopy and a repeat CT of the Abdomen and Pelvis) Time spent Time spent on discharging this patient was greater than 35 minutes, over half of which was involved in counseling and coordination of care. Beni Torres MD Jul 17, 2016 02:10
[2016-07-17] MEDS ORDERED: levoFLOXacin 750 mg Tablet PO SCH (07:30)
== END 2016-07-16 12:51 | disposition home or self-care (01) | DRG 392 ==
LOC: SED 11:05 → PCC 14:32 → OSC 07-16 01:07
PROVIDERS: ADMIT Internal Medicine; ATTEND Internal Medicine
DX: K57.20 Diverticulitis of large intestine with perforation and abscess without bleeding (principal); F17.200 Nicotine dependence, unspecified, uncomplicated